=== PATIENT | female | born 1990 | race Caucasian/White ===

== ENCOUNTER 2022-08-23 11:25 | Emergency (ER) | payer OTHER, SELFPAY ==
[2022-08-23 11:32] VITALS: BP 128/82; PULSE 81; RESP 16; TEMP 36.4; O2SAT 97
--- NOTE | 2022-08-23 11:38 | ED.URI ---
HPI - URI/Sore Throat General Chief Complaint: Upper Respiratory Infection Stated Complaint: Sore Throat Source: patient and RN notes reviewed History of Present Illness HPI Narrative: 32-year-old female presents urgent care with complaints diarrhea, nausea, slight congestion and cough. Patient states she has been having these symptoms for last 4 days. Patient reports some dyspnea with exertion in chills. Patient states she has had strep exposure at work. Denies any sore throat, fevers, chest pain, or any abdominal pain. Some parts of this dictation were generated by voice recognition software and may contain typographical and/or grammatical inaccuracies. Related Data Home Medications Medication Instructions Recorded Confirmed duloxetine 60 mg capsule,delayed 60 mg PO DAILY 08/23/22 08/23/22 release famotidine 20 mg tablet 20 mg PO DAILY 08/23/22 08/23/22 Allergies Allergy/AdvReac Type Severity Reaction Status Date / Time levofloxacin Allergy Itching Verified 08/23/22 11:40 sulfamethoxazole Allergy Itching Verified 08/23/22 11:40 trimethoprim Allergy Itching Verified 08/23/22 11:40 Review of Systems Review of Systems: CONSTITUTIONAL: chills EYES: Denies visual changes, redness, or discharge. ENT: Some congestion and had left ear pain a couple days ago. CARDIOVASCULAR: Denies chest pain, palpitations, or edema. RESPIRATORY: Reports cough and dyspnea with exertion. GASTROINTESTINAL: Reports nausea and diarrhea. GENITOURINARY: Denies dysuria or hematuria. SKIN: Denies rash or itching. MUSCULOSKELETAL: Denies back pain, joint pain, or myalgia. PMFSH Comments At the time of my signature, I reviewed and agree with the nursing past medical, surgical, social, and family history. There is no relevant family history pertinent to the patient complaint. Exam Narrative: GENERAL: This is a well-nourished, well-developed patient, in no apparent distress. HEAD: normocephalic, atraumatic. EYES: PERRL. Sclera clear/white. Vision is grossly intact. EARS: External ears normal, auditory canals clear and without drainage, TMs normal without perforation. Hearing grossly intact. NOSE: External nose normal with no obvious nasal discharge, nares without redness, no rhinorrhea. THROAT: Mucous membranes moist, posterior pharynx clear. NECK: Neck supple, non-tender without lymphadenopathy, masses or thyromegaly. CARDIOVASCULAR: Regular rate and rhythm without murmurs, gallops, or rubs. RESPIRATORY: Clear to auscultation. Breath sounds equal bilaterally. No wheezes, rales, or rhonchi. GASTROINTESTINAL: Abdomen soft, non-tender, nondistended. Bowel sounds are active. No hepato-splenomegaly, or palpable masses. No guarding. SKIN: warm, intact with no suspicious lesions or rash, good texture and turgor. NEURO: awake, alert, and oriented to person, place and time. There were no obvious focal neurologic abnormalities. Course Course Level of Care: Express Care Visit Vital Signs Vital signs: Vital Signs Temperature 97.6 F 08/23/22 11:32 Pulse Rate 81 08/23/22 11:32 Respiratory Rate 16 08/23/22 11:32 Blood Pressure 128/82 08/23/22 11:32 Pulse Oximetry 97 08/23/22 11:32 Oxygen Delivery Room Air 08/23/22 11:32 Temperature 97.6 F 08/23/22 11:32 Pulse Rate 81 08/23/22 11:32 Respiratory Rate 16 08/23/22 11:32 Blood Pressure 128/82 08/23/22 11:32 Pulse Oximetry 97 08/23/22 11:32 Oxygen Delivery Room Air 08/23/22 11:35 reviewed MDM - URI/Sore Throat MDM Narrative Medical decision making narrative: Get plenty of fluids and rest. If you develop any new or worsening symptoms, go the ER. Follow up with your attendant sales. Differential Diagnosis Differential diagnosis: Likely upper respiratory infection, otitis media, sinusitis, influenza and pharyngitis Lab Data Attestation: I reviewed the patient's lab results. Labs: Strep Screen Presumptive Negative
== END 2022-08-23 12:05 | disposition home or self-care (01) ==
PROVIDERS: Emergency Provider Nurse Practitioner Family
DX: A08.4 Viral intestinal infection, unspecified (principal); J40 Bronchitis, not specified as acute or chronic
CPT/HCPCS: 87081; 87880; 99213; G0463

== ENCOUNTER 2023-02-02 08:37 | Emergency (ER) | payer OTHER, SELFPAY ==
[2023-02-02 08:42] VITALS: BP 123/88; PULSE 87; RESP 16; TEMP 36.9; O2SAT 99
--- NOTE | 2023-02-02 08:46 | ED.URI ---
HPI - URI/Sore Throat General Chief Complaint: Upper Respiratory Infection Stated Complaint: Sore Throat/Ear Pain Time Seen by Provider: 02/02/23 08:47 Source: patient, RN notes reviewed and old records reviewed Mode of arrival: ambulatory Limitations: no limitations History of Present Illness HPI Narrative: 33 year old female who presents to [facility] care with complaints of sore throat, left ear pain and recent toothache 3 days ago which was severe, has decreased in intensity. Patient reports that tooth most posterior upper left molar #15 has been broken off for about 2 months. Patient states that she had recent strep throat but didn't have any symptoms. Patient reports that she has been taking Ibuprofen for her symptoms.Patient denies any known ill contacts. MD elicited complaint: sore throat and other (ear pain, dental pain ) Onset (ago): day(s) (3) Pain scale (0-10): 9 Able to tolerate fluids by mouth: Yes Treatments prior to arrival: ibuprofen Related Data Home Medications Medication Instructions Recorded Confirmed duloxetine 60 mg capsule,delayed 60 mg PO DAILY 08/23/22 08/23/22 release famotidine 20 mg tablet 20 mg PO DAILY 08/23/22 08/23/22 amitriptyline 10 mg tablet 10 mg PO HS 02/02/23 02/02/23 Allergies Allergy/AdvReac Type Severity Reaction Status Date / Time levofloxacin Allergy Itching Verified 02/02/23 08:53 sulfamethoxazole Allergy Itching Verified 02/02/23 08:53 trimethoprim Allergy Itching Verified 02/02/23 08:53 Review of Systems Review of Systems: CONSTITUTIONAL: Denies malaise, chills, sweats, or fever. EYES: Denies visual changes, redness, or discharge. ENT: Reports rhinorrhea, congestion, sinus pain, positive for left otalgia and sore throat, broken last molar upper left recent dental pain#15 CARDIOVASCULAR: Denies chest pain, palpitations, or edema. RESPIRATORY: Reports no cough.? Denies dyspnea. GASTROINTESTINAL: Denies abdominal pain, nausea, vomiting, diarrhea SKIN: Denies rash or itching. MUSCULOSKELETAL: Denies myalgia. NEUROLOGIC: Denies headache. All systems reviewed & are unremarkable except as noted in HPI and below PMFSH Past Medical History Medical History (Updated 02/03/23 @ 08:04 by Kirti Saravia NP) Depression GERD (gastroesophageal reflux disease) Insomnia Surgical History Surgical History (Updated 02/03/23 @ 08:02 by Kitri Saravia NP) History of kidney surgery ureteral surgery surgical repair with stents Social History Social History (Updated 02/03/23 @ 07:59 by Kirti Saravia NP) Smoking status: Never smoker Alcohol intake: current Alcohol use details: social Substance use: current Substance use type: marijuana Last use: 01/29/2023 Gender identity (if verbalized by the patient): Female Comments At time of signature, agree with nursing past medical, surgical, social and family history. There is no relevant family history pertinent to the presenting complaint Exam Narrative: GENERAL: Well-appearing, well-nourished, and in no acute distress. HEAD: Normocephalic EYES: PERRLA, conjunctivae clear ENT: Nares clear, turbinates edematous and erythematous, clear discharge. Mucous membranes moist. TM pearly hardin with dull light reflex bilaterally; no tragal tenderness. Oropharynx erythematous without lesions. Tonsils not enlarged and without exudate, no drooling, no hoarseness, no trismus, uvula midline. #15 tooth broken off, no acute swelling of gum some redness, no trismus or any Rd angina noted. NECK: Supple. No lymphadenopathy CHEST: Clear to auscultation, breath sounds equal. No wheezing, rhonchi, rales, or stridor. No respiratory distress, speaks in full sentences.SAO2 99% on room air HEART: Regular rate and rhythm. No murmur heard. SKIN: Warm, dry, no rash. NEURO: Alert and oriented x3. PSYCH: Normal mood and affect Course Course Emergency Course: Patient is aware of diagnosis, un
== END 2023-02-02 09:28 | disposition home or self-care (01) ==
PROVIDERS: Emergency Provider Registered Nurse; PCP Internal Medicine
DX: J02.9 Acute pharyngitis, unspecified (principal); K08.89 Other specified disorders of teeth and supporting structures; F12.90 Cannabis use, unspecified, uncomplicated; K21.9 Gastro-esophageal reflux disease without esophagitis
CPT/HCPCS: 87081; 87880; 99213; G0463

== ENCOUNTER 2023-06-17 11:17 | Emergency (ER) | payer OTHER, SELFPAY ==
[2023-06-17 11:23] VITALS: BP 121/79; PULSE 66; RESP 20; TEMP 36.8; O2SAT 96
--- NOTE | 2023-06-17 12:33 | ED.URI ---
HPI - URI/Sore Throat General Chief Complaint: Upper Respiratory Infection Stated Complaint: Cough/sob Time Seen by Provider: 06/17/23 12:33 Source: patient, RN notes reviewed and old records reviewed Mode of arrival: ambulatory Limitations: no limitations History of Present Illness HPI Narrative: 33-year-old adult female presents to [facility] with complaints of cough, sinus congestion, shortness of breath, headaches, bilateral ear pressure this started 5 days ago. Patient taking [id number] medications without relief. Patient denies such chest pain, fevers, nausea vomiting, weakness MD elicited complaint: cough and nasal congestion Onset (ago): day(s) ( 5) Consistency: constant Severity: moderate Related Data Home Medications Medication Instructions Recorded Confirmed duloxetine 60 mg capsule,delayed 60 mg PO DAILY 08/23/22 06/17/23 release Allergies Allergy/AdvReac Type Severity Reaction Status Date / Time levofloxacin Allergy Itching Verified 06/17/23 11:54 sulfamethoxazole Allergy Itching Verified 06/17/23 11:54 trimethoprim Allergy Itching Verified 06/17/23 11:54 Review of Systems Constitutional: Constitutional: Reports as per HPI, Reports body ache(s) and Reports headache(s) Eyes: Eyes: Reports no additional eye complaints ENT: Reports as per HPI and Reports nasal congestion Cardiovascular: Cardiovascular: Reports no additional cardiovascular complaints Respiratory: Respiratory: Reports as per HPI, Reports chest congestion, Reports cough and Reports dyspnea Neurologic: Reports system reviewed and no additional complaints, except as documented [facility] Past Medical History Medical History (Updated 06/17/23 @ 12:38 by Kirti Rubio APRN) Depression GERD (gastroesophageal reflux disease) Insomnia Surgical History Surgical History (Updated 02/03/23 @ 08:02 by Kirti Saravia NP) History of kidney surgery ureteral surgery surgical repair with stents Social History Social History (Updated 02/03/23 @ 07:59 by Kirti Saravia NP) Smoking status: Never smoker Alcohol intake: current Alcohol use details: social Substance use: current Substance use type: marijuana Last use: 01/29/2023 Gender identity (if verbalized by the patient): Female Comments At the time of my signature, I reviewed and agree with the nursing past medical, surgical, social, and family history. There is no relevant family history pertinent to the patient complaint. Exam Const: General: cooperative, healthy appearing, no acute distress and well nourished Nutritional Appearance: well nourished Orientation/consciousness: patient oriented x3 Limitations: no limitations HENMT: Head: normal to inspection and normocephalic Ears: mastoids normal, Abnormal EAC present and TM abnormal wth effusion serous and retracted Face/Nose/Sinus: normal facial exam Face and sinus: normal facial exam Mouth: Yes Normal oral and palatal mucosa present, Yes oropharynx normal and Yes moist mucous membranes Throat: posterior oropharynx normal, tonsils normal, uvula midline and no uvular edema Eyes: General: appearance normal, both eyes and all related structures Sclera: sclerae normal Pupils: Equal, round and reactive pupils present Resp: Effort & Inspection: normal respiratory effort, able to speak in complete sentences, no audible wheezes, no cough, no respiratory distress and no retractions Auscultation: clear to auscultation bilaterally, no crackles, no rales, no rhonchi and no wheezes Cardio: Rate: regular rate Rhythm: regular rhythm Skin: General skin exam: normal color and no rashes or lesions noted Neuro: General: patient oriented x3 Cranial nerves: Yes Equal, round and reactive pupils present Psych: Appearance: grossly normal Course Course Emergency Course: Some parts of this dictation were generated by voice recognition software and may contain typographical and/or grammatical inaccuraci
== END 2023-06-17 12:45 | disposition home or self-care (01) ==
PROVIDERS: Emergency Provider Registered Nurse; PCP Internal Medicine
DX: J06.9 Acute upper respiratory infection, unspecified (principal); H65.193 Other acute nonsuppurative otitis media, bilateral; K21.9 Gastro-esophageal reflux disease without esophagitis
CPT/HCPCS: 99213; G0463